=== PATIENT | male | born 1960 | race Hispanic/Latino ===

== ENCOUNTER 2021-06-08 14:16 | Inpatient (IN) | payer OTHER ==
[2021-06-08 14:51] LABS: Absolute Lymphocytes (CBC) 1.3 K/uL (0.7-4.9); Basophils % 0.4 % (0-1.3); Hematocrit 36.2 % (39.6-49.0); Lymphocytes % 18.7 % (15.3-44.8); MPV 8.2 fL (7.6-11.3); RBC Red Blood Cell Count 4.35 M/uL (4.33-5.43)
[2021-06-08 14:56] LABS: Protime INR 1.01
[2021-06-08 15:20] LABS: ALT/SGPT 26 U/L (12-78); AST/SGOT 20 U/L (15-37); Albumin 3.2 g/dL (3.4-5.0); Alkaline Phosphatase 73 U/L (45-117); BUN Blood Urea Nitrogen 55 mg/dL (7-18); Bicarbonate 20 mmol/L (21-32); Bilirubin Direct < 0.1 mg/dL (0-0.2); Bilirubin Total 0.3 mg/dL (0.2-1.0); Creatine Phosphokinase 410 U/L (39-308); Magnesium 2.8 mg/dL (1.8-2.4); NT PRO-BNP 297 pg/mL (<125); Potassium 4.7 mmol/L (3.5-5.1); Protein, Total 6.4 g/dL (6.4-8.2); Sodium Level 128 mmol/L (136-145); Troponin (Emerg Dept Use Only) 0.03 ng/mL (0.0-0.045)
[2021-06-08 15:22] LABS: Glucose Level 411 mg/dL (74-106)
--- NOTE | 2021-06-08 15:49 | RAD REPORT ---
EXAM DESCRIPTION: [place] Single View06/08/2021 3:15 pm CLINICAL HISTORY: Chest pain COMPARISON: none FINDINGS: The lungs appear clear of acute infiltrate. The heart is normal size IMPRESSION: No acute abnormalities displayed
[2021-06-08] MEDS ORDERED: NA CHLORIDE 0.9% 1,000 ML ONE (16:15)
--- NOTE | 2021-06-08 17:24 | EDPHYS ---
Physician Documentation [facility] Name: Efraín Frey Age: 60 yrs Sex: Male : 1960 Arrival Date: 06/08/2021 Time: 14:23 Bed 14 Private MD: ED Physician Troy Yoon HPI: 06/08 16:25 This 60 yrs old Male presents to ER via EMS with complaints of Near Syncope. jr8 16:25 This is a 60-year-old male patient that came in via EMS after being picked up from work jr8 for near syncopal episode. EMS stated that patient was initially hypotensive in the 70s. Patient was given fluids and now is normotensive. Patient had complained of left shoulder pain and neck pain as well. Denies chest pain or shortness of breath.. Severity of symptoms: At their worst the symptoms were moderate in the emergency department the symptoms are unchanged. The patient has not experienced similar symptoms in the past. The patient has not recently seen a physician. Historical: - Allergies: 14:34 No Known Allergies; tw5 - Home Meds: 14:34 Lisinopril Oral [Active]; Metformin Oral [Active]; tw5 - PMHx: 14:34 Hypercholesterolemia; Hypertensive disorder; Diabetes mellitus; tw5 - PSHx: 14:34 Appendectomy; tw5 - Immunization history:: Adult Immunizations unknown, Client reports receiving the 2nd dose of the Covid vaccine, pfizer. - Social history:: Smoking status: Patient denies any tobacco usage or history of. ROS: 16:25 Eyes: Negative for injury, pain, redness, and discharge, ENT: Negative for injury, jr8 pain, and discharge, Neck: Negative for injury, pain, and swelling, Cardiovascular: Negative for chest pain, palpitations, and edema, Respiratory: Negative for shortness of breath, cough, wheezing, and pleuritic chest pain, Abdomen/GI: Negative for abdominal pain, nausea, vomiting, diarrhea, and constipation, Back: Negative for injury and pain, MS/Extremity: Negative for injury and deformity, Skin: Negative for injury, rash, and discoloration. 16:25 Neuro: Positive for dizziness, near syncope. Exam: 16:30 Constitutional: This is a well developed, well nourished patient who is awake, alert, jr8 and in no acute distress. ENT: Nares patent. No nasal discharge, no septal abnormalities noted. Tympanic membranes are normal and external auditory canals are clear. Oropharynx with no redness, swelling, or masses, exudates, or evidence of obstruction, uvula midline. Mucous membranes moist. Neck: Trachea midline, no thyromegaly or masses palpated, and no cervical lymphadenopathy. Supple, full range of motion without nuchal rigidity, or vertebral point tenderness. No Meningismus. Chest/axilla: Normal chest wall appearance and motion. Nontender with no deformity. No lesions are appreciated. Cardiovascular: Regular rate and rhythm with a normal S1 and S2. No gallops, murmurs, or rubs. Normal PMI, no JVD. No pulse deficits. Respiratory: Lungs have equal breath sounds bilaterally, clear to auscultation and percussion. No rales, rhonchi or wheezes noted. No increased work of breathing, no retractions or nasal flaring. Abdomen/GI: Soft, non-tender, with normal bowel sounds. No distension or tympany. No guarding or rebound. No evidence of tenderness throughout. Back: No spinal tenderness. No costovertebral tenderness. Full range of motion. Skin: Warm, dry with normal turgor. Normal color with no rashes, no lesions, and no evidence of cellulitis. MS/ Extremity: Pulses equal, no cyanosis. Neurovascular intact. Full, normal range of motion. Neuro: Awake and alert, GCS 15, oriented to person, place, time, and situation. Cranial nerves II-XII grossly intact. Motor strength 5/5 in all extremities. Sensory grossly intact. Cerebellar exam normal. Vital Signs: 14:26 BP 125 / 72; Pulse 96; Resp 17; Temp 97.6(O); Pulse Ox 100% ; Weight 88 kg; Height 5 tw5 ft. 7 in. (170.18 cm); 15:06 BP 110 / 70; Pulse 93; Resp 20; Pulse Ox 100% on R/A; tw5 15:52 BP 130 / 70; Pulse 90; Resp 20; Pulse Ox 98% on R/A; Pain 2/10; tw5 16:41 BP 143 / 75; Pulse 84; Resp 18; Pulse Ox 98% on R/A; Pain 2/10; tw5 18:21 BP 154 / 86; Pulse 89; Resp 14; Pulse Ox 100% on R/A; Pain 2/10; tw5 21:22 BP 108 / 62; Pulse 81; Resp 15; Temp 98.6; Pulse Ox 97% ; Pain 0/10; bs2 14:26 Body Mass Index 30.38 (88.00 kg, 170.18 cm) tw5 MDM: 14:25 Patient medically screened. jr8 17:23 Data reviewed: vital signs, nurses notes, lab test result(s), EKG, radiologic studies, jr8 plain films, and as a result, I will admit patient. Data interpreted: Pulse oximetry: on room air is 98 %. Interpretation: normal. Counseling: I had a detailed discussion with the patient and/or guardian regarding: the historical points, exam findings, and any diagnostic results supporting the discharge/admit diagnosis, lab results, radiology results, the need for further work-up and treatment in the hospital. 06/08 14:24 Order name: CK; Complete Time: 15:45 mt 06/08 14:24 Order name: Basic Metabolic Panel; Complete Time: 15:45 mt 06/08 14:24 Order name: CBC with Diff; Complete Time: 15:06 mt 06/08 14:24 Order name: LFT's; Complete Time: 15:45 mt 06/08 14:24 Order name: Magnesium; Complete Time: 15:45 mt 06/08 14:24 Order name: NT PRO-BNP; Complete Time: 15:45 mt 06/08 14:24 Order name: PT-INR; Complete Time: 15:06 mt 06/08 14:24 Order name: Troponin (emerg Dept Use Only); Complete Time: 15:45 mt 06/08 14:24 Order name: XRAY Chest (1 view); Complete Time: 15:50 mt 06/08 14:56 Order name: Glucose, Ancillary Testing; Complete Time: 15:06 EDMS 06/08 16:02 Order name: Urine --Ancillary (enter results) bd 06/08 19:01 Order name: SARS-COV-2 RT PCR; Complete Time: 20:14 EDMS 06/08 19:46 Order name: Glucose, Ancillary Testing; Complete Time: 20:03 EDMS 06/08 14:24 Order name: EKG; Complete Time: 14:24 mt 06/08 14:24 Order name: Cardiac monitoring; Complete Time: 14:24 mt 06/08 14:24 Order name: EKG - Nurse/Tech; Complete Time: 14:24 mt 06/08 14:24 Order name: IV Saline Lock; Complete Time: 14:24 mt 06/08 14:24 Order name: Labs collected and sent; Complete Time: 14:31 mt 06/08 14:24 Order name: O2 Per Protocol; Complete Time: 14:24 mt 06/08 14:24 Order name: O2 Sat Monitoring; Complete Time: 14:24 mt 06/08 18:57 Order name: Accucheck; Complete Time: 20:07 la1 Administered Medications: 15:52 Drug: NS 0.9% 1000 ml Route: IV; Rate: 1000 ml; Site: right antecubital; tw5 18:22 Follow up: Response: No adverse reaction; IV Status: Completed infusion; IV Intake: tw5 1000ml 20:05 CANCELLED (Physician Discretion; pp): Insulin Regular Human 10 units Sub-Q once bs2 20:05 CANCELLED (Physician Discretion; per): Insulin Regular Human 5 units IVP once bs2 Disposition: 06/09 08:52 Co-signature as Attending Physician, Troy Yoon MD I agree with the assessment and kdr plan of care. Disposition Summary: 06/08/21 17:24 Hospitalization Ordered Provider: Andres Belle Condition: Stable jr8 Problem: new jr8 Symptoms: have improved jr8 Bed/Room Type: Standard jr8 Hospitalization Status: Inpatient Admission(06/08/21 17:55) la1 Location: Telemetry/MedSurg (Inpatient)(06/08/21 17:55) la1 Room Assignment: [facility](06/08/21 21:00) Diagnosis - Orthostatic hypotension jr8 - Acute kidney failure, unspecified jr8 Forms: - Medication Reconciliation Form jr8 - SBAR form jr8 Signatures: Dispatcher [employer] Michelle Patricio RN RN mw Rittger, Kevin, MD MD [facility] Shailesh Mireles PA PA jr8 Alexey Monson, CERTIFIED BENCH JEWELER TECHNICIAN-C CERTIFIED BENCH JEWELER TECHNICIAN-Cla1 Azul Bobo mt, Bridget RN RN bs2 Harini Servin tw5 Corrections: (The following items were deleted from the chart) 06/08 17:55 17:24 Observation jr8 la1 17:55 17:24 Telemetry/MedSurg (observation) jr8 la1 17:55 17:24 jr8 la1 19:01 18:01 CORONAVIRUS+MR.TISHA.BRZ ordered. EDMS EDMS 20:05 18:57 Insulin Regular Human 10 units Sub-Q once ordered. la1 bs2 20:05 18:57 Insulin Regular Human 5 units IVP once ordered. la1 bs2 20:05 20:05 Insulin Regular Human 5 units IVP once ordered. bs2 bs2 20:05 20:05 Insulin Regular Human 10 units Sub-Q once ordered. bs2 bs2 21:00 17:55 la1 mw
--- NOTE | 2021-06-08 17:24 | ER ---
Nurse's Notes [facility] Name: Efraín Frey Age: 60 yrs Sex: Male : 1960 Arrival Date: 06/08/2021 Time: 14:23 Bed 14 Private MD: Diagnosis: Orthostatic hypotension;Acute kidney failure, unspecified Presentation: 06/08 14:26 Chief complaint: EMS states: near syncope. pt was working and felt light headed, leaned tw5 on the stair well to catch his breath then walked down the stairs and called the ambulance. pt also reports left shoulder pain and upper neck pain. EMS reports "positive tilt test. BP went from 105/55 to 75/45". Coronavirus screen: At this time, unable to obtain information related to travel outside the [place] Ebola Screen: No symptoms or risks identified at this time. Initial Sepsis Screen: Does the patient meet any 2 criteria? No. Patient's initial sepsis screen is negative. Does the patient have a suspected source of infection? No. Patient's initial sepsis screen is negative. Risk Assessment: Do you want to hurt yourself or someone else? Patient reports no desire to harm self or others. Onset of symptoms was June 08, 2021. 14:26 Method Of Arrival: EMS: [facility] tw5 14:26 Acuity: CHON 3 tw5 14:32 Care prior to arrival: Medication(s) given: ASA, 81 mg, x 3, LR 700mL IV initiated. tw5 Glucose check: 511. Triage Assessment: 14:34 General: Appears in no apparent distress. comfortable, Behavior is calm, cooperative, tw5 appropriate for age. Pain: Complains of pain in base of head/upper neck, left shoulder. EENT: No deficits noted. Neuro: Level of Consciousness is awake, alert, obeys commands. Cardiovascular: Reports lightheadedness, near syncope Denies chest pain. Respiratory: No deficits noted. GI: No deficits noted. : No deficits noted. Derm: No deficits noted. Musculoskeletal: No deficits noted. Historical: - Allergies: 14:34 No Known Allergies; tw5 - Home Meds: 14:34 Lisinopril Oral [Active]; Metformin Oral [Active]; tw5 - PMHx: 14:34 Hypercholesterolemia; Hypertensive disorder; Diabetes mellitus; tw5 - PSHx: 14:34 Appendectomy; tw5 - Immunization history:: Adult Immunizations unknown, Client reports receiving the 2nd dose of the Covid vaccine, pfizer. - Social history:: Smoking status: Patient denies any tobacco usage or history of. Screenin:31 Abuse screen: Denies threats or abuse. Denies injuries from another. Nutritional tw5 screening: No deficits noted. Tuberculosis screening: No symptoms or risk factors identified. Fall Risk Fall in past 12 months (25 points). Assessment: 15:06 General: Appears in no apparent distress. comfortable, Behavior is calm, cooperative, tw5 Reports dizziness. Pain: Complains of pain in occipital area Pain currently is 3 out of 10 on a pain scale. Cardiovascular: Heart tones S1 S2 present. Respiratory: No deficits noted. Airway is patent Trachea midline Respiratory effort is even, unlabored, Respiratory pattern is regular, Breath sounds are clear bilaterally. 15:06 Neuro: Level of Consciousness is awake, alert, obeys commands, Oriented to person, tw5 place, time, situation, Speech is normal, Pupils are PERRLA. 15:52 Reassessment: Patient states feeling better. tw5 16:41 Reassessment: Patient appears in no apparent distress at this time. No changes from tw5 previously documented assessment. General: Reports He states that he saw his Doctor that is located in [place] at the beginning of May and was told everything was good. 18:21 Reassessment: Patient appears in no apparent distress at this time. No changes from tw5 previously documented assessment. Patient and/or family updated on plan of care and expected duration. Pain level reassessed. Patient is alert, oriented x 3, equal unlabored respirations, skin warm/dry/pink. Patient states feeling better. Patient states symptoms have improved. Vital Signs: 14:26 BP 125 / 72; Pulse 96; Resp 17; Temp 97.6(O); Pulse Ox 100% ; Weight 88 kg; Height 5 tw5 ft. 7 in. (170.18 cm); 15:06 BP 110 / 70; Pulse 93; Resp 20; Pulse Ox 100% on R/A; tw5 15:52 BP 130 / 70; Pulse 90; Resp 20; Pulse Ox 98% on R/A; Pain 2/10; tw5 16:41 BP 143 / 75; Pulse 84; Resp 18; Pulse Ox 98% on R/A; Pain 2/10; tw5 18:21 BP 154 / 86; Pulse 89; Resp 14; Pulse Ox 100% on R/A; Pain 2/10; tw5 21:22 BP 108 / 62; Pulse 81; Resp 15; Temp 98.6; Pulse Ox 97% ; Pain 0/10; bs2 14:26 Body Mass Index 30.38 (88.00 kg, 170.18 cm) tw5 ED Course: 14:23 Patient arrived in ED. iw 14:25 Shailesh Mireles PA is PHCP. jr8 14:25 Troy Yoon MD is Attending Physician. jr8 14:26 Harini Servin is Primary Nurse. tw5 14:31 Triage completed. tw5 14:31 Resting quietly. Awaiting ED provider evaluation. tw5 14:31 Patient has correct armband on for positive identification. Placed in gown. Bed in low tw5 position. Call light in reach. Side rails up X 1. teletypesetter monitor on. Pulse ox on. NIBP on. Door closed. Noise minimized. Visitors limited. Lights dimmed. Moved to private room. Warm blanket given. Diet: Patient is NPO. 14:31 No provider procedures requiring assistance completed. Patient maintains SpO2 tw5 saturation greater than 95% on room air. 14:37 Patient placed in an exam room. EKG completed in triage. Results shown to MD. tw5 15:06 Maintain EMS IV. Dressing intact. Site clean \\T\\ dry. Gauge \\T\\ site: 20 rac. tw 5 15:15 XRAY Chest (1 view) In Process Unspecified. EDMS 17:23 Andres Belle DO is Hospitalizing Provider. jr8 21:44 Patient admitted, IV remains in place. bs2 Administered Medications: 15:52 Drug: NS 0.9% 1000 ml Route: IV; Rate: 1000 ml; Site: right antecubital; tw5 18:22 Follow up: Response: No adverse reaction; IV Status: Completed infusion; IV Intake: tw5 1000ml 20:05 CANCELLED (Physician Discretion; pp): Insulin Regular Human 10 units Sub-Q once bs2 20:05 CANCELLED (Physician Discretion; per): Insulin Regular Human 5 units IVP once bs2 Intake: 18:22 IV: 1000ml; Total: 1000ml. tw5 Outcome: 17:24 Decision to Hospitalize by Provider. jr8 21:44 Admitted to Med/surg accompanied by tech, via stretcher, room 219, with chart, Report bs2 called to Aug 21:50 Condition: stable bs2 22:33 Patient left the ED. bs2 Signatures: Dispatcher [employer] EDBarbara Pate RN [place] iw Shailesh Mireles PA PA jr8 Kianna Chavis RN RN bs2 Harini Servin tw5 Corrections: (The following items were deleted from the chart) 14:34 14:26 Chief complaint: EMS states: near syncope. pt was working and felt light headed, tw5 leaned on the stair well to catch his breath then walked down the stairs and called the ambulance. pt also reports left shoulder pain tw5
--- NOTE | 2021-06-08 19:16 | P.HP ---
Certification for Inpatient Patient admitted to: Inpatient With expected LOS: >2 Midnights Patient will require the following post-hospital care: None Practitioner: I am a practitioner with admitting privileges, knowledge of patient current condition, hospital course, and medical plan of care. Services: Services provided to patient in accordance with Admission requirements found in Title 42 Section 412.3 of the Code of Federal Regulations Patient History Date of Service: 06/08/21 Primary Care Provider: Out of town Reason for admission: Acute renal failure, dehydration History of Present Illness: 60-year-old male with history of diabetes type 2, hypertension, hyperlipidemia presented to the emergency department for headache, near syncope. Patient was at work when he began feeling very weak and almost passed out. Patient was evaluated in the emergency department labs were significant for sodium 128 chloride 97 CO2 20 BUN 55 creatinine 2.71 GFR 24 glucose 411 CPK 410. Patient with no known history of kidney disease. ED provider wishes to admit for acute renal failure, dehydration. - Past Medical/Surgical History -: Hypertension -: Diabetes type 2 -: Hyperlipidemia -: Appendectomy -: Right thumb surgery Psychosocial/ Personal History: Patient works as a strategy intern lives at home with his and children - Family History Father -: Diabetes Mother -: Diabetes - Social History Smoking Status: Never smoker Alcohol use: No CD- Drugs: No Caffeine use: No Place of Residence: Home Review of Systems 10-point ROS is otherwise unremarkable General: Weakness, Malaise Physical Examination - Physical Exam General: Alert, In no apparent distress, Oriented x3 HEENT: Atraumatic, PERRLA, Mucous membr. moist/pink, EOMI, Sclerae nonicteric Neck: Supple, 2+ carotid pulse no bruit, No LAD, Without JVD or thyroid abnormality Respiratory: Clear to auscultation bilaterally, Normal air movement Cardiovascular: Regular rate/rhythm, Normal S1 S2 Gastrointestinal: Normal bowel sounds, No tenderness Musculoskeletal: No tenderness Integumentary: No rashes Neurological: Normal gait, Normal speech, Normal strength at 5/5 x4 extr, Normal tone, Normal affect Lymphatics: No axilla or inguinal lymphadenopathy - Studies Laboratory Data (last 24 hrs) 06/08/21 14:31: PT 11.6, INR 1.01 06/08/21 14:31: WBC 6.90, Hgb 12.3 L, Hct 36.2 L, Plt Count 222 06/08/21 14:31: Sodium 128 L, Potassium 4.7, BUN 55 H, Creatinine 2.71 H, Glucose 411 H*, Magnesium 2.8 H, Total Bilirubin 0.3, AST 20, ALT 26, Alkaline Phosphatase 73 Assessment and Plan - Plan Assessment: Near syncope, acute renal failure, hyponatremia likely secondary to dehydration Diabetes type 2 with hyperglycemia Hypertension Hyperlipidemia Plan: Near syncope, acute renal failure, hyponatremia likely secondary to dehydration: Continue with IV fluids, renal ultrasound ordered, will trend CPK level, nephrology consulted. Daily labs. Diabetes type 2 with hyperglycemia: A [facility] Accu-Chek, sliding scale insulin therapy. A1c with morning labs. Patient currently only on Metformin blood sugar elevated may require insulin at discharge. Hypertension: Obtain and continue medication, hold MAYTE/ARB. Hyperlipidemia: Continue home medications. DVT PPX: Heparin Code status: Full Discharge Plan: Home Plan to discharge in: 48 Hours - Advance Directives Does patient have a Living Will: No Does patient have a Durable POA for Healthcare: No - Code Status/Comfort Care Code Status Assessed: Yes (Full code) Critical Care: No Time Spent Managing Pts Care (In Minutes): 55
[2021-06-08] MEDS ORDERED: ONDANSETRON 4 MG/2 ML VIAL IV PRN (20:48)
[2021-06-08] MEDS: NA CHLORIDE 0.9% 1,000 ML IV SCH (20:48)
[2021-06-08] MEDS ORDERED: ACETAMINOPHEN 500 MG TAB PO PRN (20:48)
[2021-06-08] MEDS: HEPARIN 5000 UNIT/ML 1 ML VIAL SQ SCH (21:00)
[2021-06-08 22:42] VITALS: BMI 30.4
[2021-06-09] MEDS ORDERED: D50W 25 GM/50 ML SYRINGE IV PRN (03:10)
[2021-06-09] MEDS ORDERED: GLUCAGON 1 MG/VIAL IM PRN (03:10)
[2021-06-09 03:14] LABS: Urine Appearance CLEAR (Clear); Urine Bilirubin NEGATIVE (Negative); Urine Blood NEGATIVE (Negative); Urine Color YELLOW (Yellow); Urine Glucose 3+ (Negative); Urine Protein NEGATIVE (Negative); Urine Specific Gravity 1.015 (1.005-1.030); Urine Urobilinogen 0.2 mg/dL (0.2-1.0)
[2021-06-09 03:37] LABS: Urine Microscopic Reflex NO UMIC
[2021-06-09 04:40] LABS: Absolute Lymphocytes (CBC) 1.4 K/uL (0.7-4.9); Basophils % 0.6 % (0-1.3); Hematocrit 36.7 % (39.6-49.0); Lymphocytes % 30.7 % (15.3-44.8); RBC Red Blood Cell Count 4.45 M/uL (4.33-5.43)
[2021-06-09 05:05] LABS: ALT/SGPT 28 U/L (12-78); AST/SGOT 16 U/L (15-37); Alkaline Phosphatase 73 U/L (45-117); BUN Blood Urea Nitrogen 42 mg/dL (7-18); Bicarbonate 24 mmol/L (21-32); Bilirubin Total 0.2 mg/dL (0.2-1.0); Creatine Phosphokinase 251 U/L (39-308); Glucose Level 270 mg/dL (74-106); HDL Cholesterol 33 mg/dL (40-60); Magnesium 3.1 mg/dL (1.8-2.4); Protein, Total 6.3 g/dL (6.4-8.2); Sodium Level 139 mmol/L (136-145); Thyroid Stimulating Hormone 0.644 uIU/mL (0.360-3.740)
[2021-06-09 05:17] LABS: LDL, Direct 53 mg/dL (100-129)
--- NOTE | 2021-06-09 06:00 | P.PN ---
Subjective Date of Service: 06/09/21 Primary Care Provider: Out of town Chief Complaint: Acute renal failure, dehydration Subjective: Improving, Doing well Physical Examination - Vital Signs Temperature: 97.9 F Blood Pressure: 115/63 Pulse: 88 Respirations: 16 Pulse Ox (%): 99 - Studies Laboratory Data (last 24 hrs) 06/08/21 14:31: PT 11.6, INR 1.01 06/08/21 14:31: WBC 6.90, Hgb 12.3 L, Hct 36.2 L, Plt Count 222 06/08/21 14:31: Sodium 128 L, Potassium 4.7, BUN 55 H, Creatinine 2.71 H, Glucose 411 H*, Magnesium 2.8 H, Total Bilirubin 0.3, AST 20, ALT 26, Alkaline Phosphatase 73 Assessment & Plan Discharge Plan: Home Plan to discharge in: 24 Hours Physician Review Additional Text: COVID: Negative CXR: COMPARISON: none FINDINGS: The lungs appear clear of acute infiltrate. The heart is normal size IMPRESSION: No acute abnormalities displayed Renal US: COMPARISON: No comparisons FINDINGS: Both kidneys are normal in size, shape and echotexture. The right kidney measures 11.7 x 7.9 x 5.9 cm. No hydronephrosis, focal mass or perinephric fluid. The left kidney measures 12.6 x 6.2 x 5.0 cm. No hydronephrosis, focal mass or perinephric fluid. The urinary bladder is incompletely distended without gross abnormality seen. IMPRESSION: Unremarkable renal sonogram. Physical exam: General: Patient alert, doing better. Appears better hydrated HEENT: Neck supple Respiratory: Clear to auscultation bilaterally, Normal air movement Cardiovascular: Regular rate/rhythm, Normal S1 S2 Gastrointestinal: Normal bowel sounds, No tenderness Musculoskeletal: No tenderness Integumentary: No rashes Neurological: Normal gait, Normal speech, Normal strength at 5/5 x4 extr, Normal tone, Normal affect Lymphatics: No axilla or inguinal lymphadenopathy Impression: Near syncope, acute renal failure, hyponatremia secondary to dehydration Diabetes type 2 with hyperglycemia Hypertension Hyperlipidemia Plan: Near syncope, acute renal failure, hyponatremia secondary to dehydration: Renal function improved. Renal ultrasound unremarkable. Continue IV fluids. Continue oral intake. Patient better hydrated. Will discuss with nephrology. Overall significantly improved. Possible discharge as early as today or tomorrow. Reassess later today. Diabetes type 2 with hyperglycemia: Continue Accu-Cheks. Hemoglobin A1c 10.1. Patient needs better control. Patient reports taking Metformin. Continue to hold due to acute renal failure. Hypertension: Patient reports taking beta-patrice and MAYTE inhibitor. Continue to hold MAYTE inhibitor due to dehydration. Need to obtain and verify home medication. Hyperlipidemia: Need to obtain and verify home medication. DVT PPX: Heparin Code status: Full Discharge Plan: Home at discharge Time Spent Managing Pts Care (In Minutes): 55
--- NOTE | 2021-06-09 07:15 | EKG ---
Test Date: 2021-06-08 Test Time: 14:22:43 Requirements Manager: NICOLE MEASUREMENT RESULTS: Intervals: Rate: 96 MO: 144 QRSD: 84 QT: 380 QTc: 480 [place]: P: 34 MO: 144 QRS: 24 T: 75 INTERPRETIVE STATEMENTS: Normal sinus rhythm Possible Left atrial enlargement Prolonged QT Abnormal ECG No previous ECG available for comparison Electronically Signed On 06-09-21 07:15:11 CDT by Fam Campbell
[2021-06-09] MEDS: HEPARIN 5000 UNIT/ML 1 ML VIAL SQ SCH ×2 (08:30→21:25)
[2021-06-09] MEDS: INSULIN -REGULAR HUMAN 50 UNIT/0.5 ML ML SQ SCH ×4 (08:31→21:00)
--- NOTE | 2021-06-09 09:10 | RAD REPORT ---
EXAM DESCRIPTION: US - Renal Ultrasound-Complete - 06/09/2021 1:42 am CLINICAL HISTORY: arf Flank pain COMPARISON: No comparisons FINDINGS: Both kidneys are normal in size, shape and echotexture. The right kidney measures 11.7 x 7.9 x 5.9 cm. No hydronephrosis, focal mass or perinephric fluid. The left kidney measures 12.6 x 6.2 x 5.0 cm. No hydronephrosis, focal mass or perinephric fluid. The urinary bladder is incompletely distended without gross abnormality seen. IMPRESSION: Unremarkable renal sonogram.
[2021-06-09] MEDS ORDERED: INFLUENZA VACCINE (for 6+ mo) 0.5 ML DOSE IMVAC ONE (10:00)
[2021-06-09] MEDS: NA CHLORIDE 0.9% 1,000 ML IV SCH ×2 (10:44→21:23)
[2021-06-09 22:43] VITALS: O2SAT 99
[2021-06-10 04:16] LABS: Absolute Lymphocytes (CBC) 1.7 K/uL (0.7-4.9); Basophils % 0.5 % (0-1.3); Hematocrit 39.7 % (39.6-49.0); Lymphocytes % 29.1 % (15.3-44.8); RBC Red Blood Cell Count 4.76 M/uL (4.33-5.43)
[2021-06-10 04:40] LABS: Albumin 3.2 g/dL (3.4-5.0); Bilirubin Total 0.2 mg/dL (0.2-1.0); Magnesium 2.7 mg/dL (1.8-2.4); Potassium 4.2 mmol/L (3.5-5.1); Protein, Total 6.7 g/dL (6.4-8.2)
[2021-06-10] MEDS ORDERED: METOPROLOL TAR 25 MG TAB PO SCH (06:08)
--- NOTE | 2021-06-10 06:10 | P.DS ---
Admission Date: 06/08/21 Discharge Date: 06/10/21 Primary Care Provider: NINO Gill Disposition: ROUTINE DISCHARGE Discharge Condition: GOOD Reason for Admission: Acute renal failure, dehydration Consultations: Nephrology-Dr. Virk Procedures: COVID: Negative CXR: COMPARISON: none FINDINGS: The lungs appear clear of acute infiltrate. The heart is normal size IMPRESSION: No acute abnormalities displayed Renal US: COMPARISON: No comparisons FINDINGS: Both kidneys are normal in size, shape and echotexture. The right kidney measures 11.7 x 7.9 x 5.9 cm. No hydronephrosis, focal mass or perinephric fluid. The left kidney measures 12.6 x 6.2 x 5.0 cm. No hydronephrosis, focal mass or perinephric fluid. The urinary bladder is incompletely distended without gross abnormality seen. IMPRESSION: Unremarkable renal sonogram. Medical Problem List: Near syncope, acute renal failure, hyponatremia secondary to dehydration Diabetes type 2 with hyperglycemia Hypertension Hyperlipidemia BPH Brief History of Present Illness: 60-year-old male with history of diabetes type 2, hypertension, hyperlipidemia presented to the emergency department for headache and near syncope. Patient was at work when he began feeling very weak and almost passed out. Patient was evaluated in the emergency department labs were significant for sodium 128 chloride 97 CO2 20 BUN 55 creatinine 2.71 GFR 24 glucose 411 CPK 410. Patient with no known history of kidney disease. Patient appeared dehydrated. Patient was admitted for treatment. Hospital Course: Patient presented with near syncope secondary to acute renal failure, hyponatremia and dehydration. Patient was admitted for treatment. Patient received IV fluids with improvement. Medications were held during his stay due to his acute renal failure. Renal function back to baseline. Renal ultrasound unremarkable. Patient back to baseline. At discharge medications have been adjusted. Recommend to increase oral intake especially when working. Patient needs to take frequent resting periods at work. Recommend to return to work on Tuesday. Recommend follow-up with PCP within 1 week to follow-up his hospitalization and continue his care. Patient with diabetes mellitus type 2 with hyperglycemia. Hemoglobin A1c 10.1. Medications were held during his stay due to his acute renal failure. Renal function back to baseline. Medications reviewed in detail. At discharge will recommend to discontinue Farxiga. Recommend to continue Metformin at 1000 mg 1 pill twice daily and glipizide 10 mg 1 pill twice daily. Recommend to maintain blood sugar less than 140 fasting and less than 200 after meals. If blood sugars remain above 200 then additional medication may be required. Patient will be educated on a 2000 ADA diet. Recommend to recheck hemoglobin A1c every 3 months to monitor his progress. Further adjustment in medication can be done by his PCP. Recommend follow-up with PCP within 1 week to follow-up his hospitalization and continue his care. Patient with hypertension. Medications were adjusted during the course of his stay. Patient previously on atenolol. This was discontinued and replaced by metoprolol. At discharge will recommend to continue metoprolol 25 mg 1 pill twice daily and lisinopril 10 mg daily. Recommend to maintain blood pressure less than 130/80. If blood pressure remains above 140/90 adjustment in medication may be required. This can be done with the help of his PCP. Patient with hyperlipidemia. At discharge patient will continue with Lipitor 20 mg daily. Patient with BPH. At discharge patient will continue Flomax 0.4 mg daily. Patient previously on iron 325 mg daily for iron deficiency anemia. Hemoglobin stable at this time. No need for iron supplementation at this time. Patient may take multivitamin with iron [id number]. Recommend to recheck CBC in 1 month to monitor his progress. Vital Signs/Physical Exam: Temp Pulse Resp BP Pulse Ox 97.3 F 88 18 161/82 H 99 06/10/21 04:00 06/10/21 04:00 06/10/21 04:00 06/10/21 04:00 06/10/21 04:00 General: Alert, In no apparent distress, Oriented x3, Cooperative HEENT: Atraumatic Neck: Supple Respiratory: Clear to auscultation bilaterally, Normal air movement Cardiovascular: Normal pulses, Regular rate/rhythm Gastrointestinal: Normal bowel sounds, No ascites, No tenderness, No masses, No rebound, No guarding Musculoskeletal: No erythema, No tenderness, No warmth Integumentary: No tenderness/swelling Neurological: Normal speech, Normal strength at 5/5 x4 extr, Normal tone Laboratory Data at Discharge: WBC 5.80 K/uL (4.3-10.9) D 06/10/21 03:58 Hgb 13.4 g/dL (13.6-17.9) L 06/10/21 03:58 Hct 39.7 % (39.6-49.0) 06/10/21 03:58 Plt Count 224 K/uL (152-406) 06/10/21 03:58 PT 11.6 SECONDS (9.5-12.5) 06/08/21 14:31 INR 1.01 06/08/21 14:31 Sodium 142 mmol/L (136-145) 06/10/21 03:58 Potassium 4.2 mmol/L (3.5-5.1) 06/10/21 03:58 BUN 18 mg/dL (7-18) D 06/10/21 03:58 Creatinine 0.91 mg/dL (0.55-1.3) 06/10/21 03:58 Glucose 200 mg/dL (74-106) H 06/10/21 03:58 Magnesium 2.7 mg/dL (1.8-2.4) H 06/10/21 03:58 Total Bilirubin 0.2 mg/dL (0.2-1.0) 06/10/21 03:58 AST 15 U/L (15-37) 06/10/21 03:58 ALT 28 U/L (12-78) 06/10/21 03:58 Alkaline Phosphatase 78 U/L (45-117) 06/10/21 03:58 Triglycerides 559 mg/dL (<150) H 06/09/21 04:23 Cholesterol 139 mg/dL (<200) 06/09/21 04:23 LDL Cholesterol Direct 53 mg/dL (100-129) L 06/09/21 04:23 HDL Cholesterol 33 mg/dL (40-60) L 06/09/21 04:23 Cholesterol/HDL Ratio 4.21 06/09/21 04:23 Home Medications: Ascorbic Acid [Vitamin C] 1 tab PO DAILY 06/09/21 Atorvastatin Calcium 1 tab PO DAILY 06/09/21 Garlic 1 cap PO DAILY 06/09/21 Lisinopril [Zestril] 1 tab PO DAILY 06/09/21 Metformin HCl 1 tab PO BID 06/09/21 Tamsulosin [Flomax*] 1 cap PO BEDTIME 06/09/21 glipiZIDE [Glipizide] 1 tab PO BID 06/09/21 Metoprolol Tartrate [Lopressor*] 25 mg PO BID 6AM 6PM #60 tab 06/10/21 New Medications: Metoprolol Tartrate [Lopressor*] 25 mg PO BID 6AM 6PM #60 tab Physician Discharge Instructions: Patient presented with near syncope secondary to acute renal failure, hyponatremia and dehydration. Patient was admitted for treatment. Patient received IV fluids with improvement. Medications were held during his stay due to his acute renal failure. Renal function back to baseline. Renal ultrasound unremarkable. Patient back to baseline. At discharge medications have been adjusted. Recommend to increase oral intake especially when working. Patient needs to take frequent resting periods at work. Recommend to return to work on Tuesday. Recommend follow-up with PCP within 1 week to follow-up his hospitalization and continue his care. Patient with diabetes mellitus type 2 with hyperglycemia. Hemoglobin A1c 10.1. Medications were held during his stay due to his acute renal failure. Renal function back to baseline. Medications reviewed in detail. At discharge will recommend to discontinue Farxiga. Recommend to continue Metformin at 1000 mg 1 pill twice daily and glipizide 10 mg 1 pill twice daily. Recommend to maintain blood sugar less than 140 fasting and less than 200 after meals. If blood sugars remain above 200 then additional medication may be required. Patient will be educated on a 2000 ADA diet. Recommend to recheck hemoglobin A1c every 3 months to monitor his progress. Further adjustment in medication can be done by his PCP. Recommend follow-up with PCP within 1 week to follow-up his hospitalization and continue his care. Patient with hypertension. Medications were adjusted during the course of his stay. Patient previously on atenolol. This was discontinued and replaced by metoprolol. At discharge will recommend to continue metoprolol 25 mg 1 pill twice daily and lisinopril 10 mg daily. Recommend to maintain blood pressure less than 130/80. If blood pressure remains above 140/90 adjustment in medication may be required. This can be done with the help of his PCP. Patient with hyperlipidemia. At discharge patient will continue with Lipitor 20 mg daily. Patient with BPH. At discharge patient will continue Flomax 0.4 mg daily. Patient previously on iron 325 mg daily for iron deficiency anemia. Hemoglobin stable at this time. No need for iron supplementation at this time. Patient may take multivitamin with iron [id number]. Recommend to recheck CBC in 1 month to monitor his progress. Diet: ADA Activity: Ad oli Followup: NONE,NONE [Primary Care Provider] - Time spent managing pt's care (in minutes): 55
[2021-06-10] MEDS: NA CHLORIDE 0.9% 1,000 ML IV SCH (06:50)
[2021-06-10] MEDS: INSULIN -REGULAR HUMAN 50 UNIT/0.5 ML ML SQ SCH (07:30)
[2021-06-10 08:24] VITALS: BP 156/85; TEMP 96.9
[2021-06-10] MEDS ORDERED: FERROUS SULFATE 325 MG TAB PO SCH (09:00)
[2021-06-10] MEDS ORDERED: METFORMIN HCL 500 MG TAB FT SCH (09:00)
[2021-06-10] MEDS ORDERED: ASCORBIC ACID 500 MG TABLET PO SCH (09:00)
[2021-06-10] MEDS ORDERED: ATORVASTATIN 20 MG TAB PO SCH (09:00)
[2021-06-10] MEDS ORDERED: lisinopriL 10 MG TAB PO SCH (09:00)
--- NOTE | 2021-06-10 16:41 | EKG ---
Test Date: 2021-06-08 Test Time: 14:49:38 Marine Farmer: NICOLE MEASUREMENT RESULTS: Intervals: Rate: 91 NE: 144 QRSD: 84 QT: 390 QTc: 479 Sanders: P: 33 NE: 144 QRS: 21 T: 81 INTERPRETIVE STATEMENTS: Normal sinus rhythm Normal ECG Compared to ECG 06/08/2021 14:22:43 Prolonged QT interval no longer present Electronically Signed On 06-10-21 16:36:15 CDT by Fam Campbell
[2021-06-10] MEDS ORDERED: TAMSULOSIN 0.4 MG SR CAP PO SCH (21:00)
== END 2021-06-10 09:26 | disposition home or self-care (01) | DRG 683 ==
LOC: ER 14:16 → ERHOLD 19:47 → 2ND 21:48
PROVIDERS: ADMIT Family Medicine; ATTEND Family Medicine
DX: N17.9 Acute kidney failure, unspecified (principal); E87.1 Hypo-osmolality and hyponatremia; E86.0 Dehydration; E78.5 Hyperlipidemia, unspecified; E11.65 Type 2 diabetes mellitus with hyperglycemia; I10 Essential (primary) hypertension; R55 Syncope and collapse; N40.0 Benign prostatic hyperplasia without lower urinary tract symptoms; Z23 Encounter for immunization; Z20.822 Contact with and (suspected) exposure to COVID-19
CPT/HCPCS: 36415; 71045; 76770; 80048; 80053; 80061; 80076; 81003; 81025; 82550; 82947; 83036; 83735; 83880; 84439; 84443; 84484; 85025; 85610; 90471; 93005; 96360; 96361; 99285; J1644; J7030; Q2035; U0003